=== PATIENT | female | born 1960 | race Caucasian/White ===

== ENCOUNTER 2019-05-29 10:39 | Inpatient (IN) | payer BC, OTHER ==
[~2019-05-29] VITALS: Ht 177.8 cm; Wt 88.3 kg
[2019-05-29] VITALS (15 sets, daily range): BP systolic 108–138; BP diastolic 70–91
[2019-05-29] MEDS ORDERED: LIDOCAINE 2%HCL (LOCAL ANESTH.) INJ 20ML MDV ONE (10:49)
[2019-05-29] MEDS ORDERED: IOHEXOL 350 MG/ML 100ML IJ ONE ×2 (10:49→10:59)
[2019-05-29] MEDS ORDERED: MIDAZOLAM HCL 1MG/1ML-2 ML VIAL ONE (10:58)
[2019-05-29] MEDS ORDERED: fentaNYL CITRATE 100 MCG/2 ML VL ONE (10:58)
[2019-05-29] MEDS ORDERED: ANGIOMAX 250 MG VIAL IV ONE (10:58)
[2019-05-29] MEDS ORDERED: NOREPINEPHRINE 8 MG/250ML KIT 0 ML IV ONE (10:59)
[2019-05-29] MEDS ORDERED: SODIUM CHL 0.9% 50 ML ONE (10:59)
[2019-05-29] MEDS ORDERED: HEPARIN SODIUM (PORCINE) 5000 UNITS/ML 1ML VIAL IV ONE (11:00)
[2019-05-29] MEDS ORDERED: MORPHINE SULF INJ 2 MG/ML SYRINGE 1ML IV PRN ×2 (11:00→13:00)
[2019-05-29 11:05] LABS: Basophils # (auto) 0 uL; Basophils % (auto) 0.1 % (0.0-2.0); Eosinophils # (auto) 0.2 uL; Eosinophils % (auto) 0.9 % (0.0-7.0); Hematocrit 43.4 % (36.0-46.0); Hemoglobin 14.4 g/dL (12.2-16.2); Lymphocytes # (auto) 2.8 uL; Lymphocytes % (auto) 16.7 % (10.0-50.0); Mean Corpuscular Hemoglobin 32.1 pg (28.0-32.0); Mean Corpuscular Hgb Conc. 33.3 g/dL (32.0-36.0); Mean Corpuscular Volume 96.4 fL (80.0-100.0); Monocytes # (auto) 0.7 uL; Monocytes % (auto) 3.9 % (0.0-12.0); Neutrophils # (auto) 13.2 uL; Neutrophils % (auto) 78.4 % (37.0-80.0); Nucleated Red Blood Cells % 0.2 %; Platelet Count (auto) 266 10^3/uL (140-450); Red Blood Cells 4.51 10^6/uL (4.0-5.20); Red Cell Distribution Width 13.8 % (11.8-14.3); White Blood Cell 16.9 10^3/uL (4.4-10.8)
[2019-05-29] MEDS ORDERED: ONDANSETRON HCL 4 MG/2 ML VIAL ONE (11:19)
[2019-05-29 11:20] LABS: Alanine Aminotransferase 23 U/L (13-56); Albumin 3.8 g/dL (3.4-5.0); Anion Gap 8 (5-15); Blood Urea Nitrogen 13 mg/dL (7-18); Calcium 8.6 mg/dL (8.5-10.1); Carbon Dioxide 27 mmol/L (21-32); Chloride 108 mmol/L (98-107); Glucose 164 mg/dL (74-106); Magnesium 2.1 mg/dL (1.6-2.6); Potassium 3.8 mmol/L (3.5-5.1); Sodium 143 mmol/L (136-145)
[2019-05-29] MEDS ORDERED: ATROPINE SULFATE 1 MG/1 ML VIAL ONE ×2 (11:21→11:50)
[2019-05-29] MEDS ORDERED: EPTIFIBATIDE INJ (2MG/ML) 10ML VIAL IV ONE (11:24)
[2019-05-29 11:26] LABS: Alkaline Phosphatase 92 U/L (45-117); Aspartate Aminotransferase 20 U/L (15-37); BUN/Creatinine Ratio 14.9; Bilirubin, Total 0.3 mg/dL (0.2-1.0); GFR African American 86 mL/min; GFR Non-African American 71 mL/min; Total Protein 6.7 g/dL (6.4-8.2)
[2019-05-29 11:34] LABS: INR 0.98 (0.9-1.15); Partial Thromboplastin Time 25.1 sec (23.64-32.05)
[2019-05-29] MEDS ORDERED: NICARDIPINE 25 MG/10 ML VIAL IV ONE (11:38)
[2019-05-29] MEDS ORDERED: CLOPIDOGREL 300 MG TAB ONE (12:04)
[2019-05-29] MEDS ORDERED: ASPirin 325 MG TAB ONE (12:04)
[2019-05-29] MEDS ORDERED: NITROGLYCERIN 0.4 MG SL TAB SL PRN ×2 (13:00)
[2019-05-29] MEDS ORDERED: HYDROcodone-ACET 5/325MG TAB PO PRN (13:00)
[2019-05-29] MEDS ORDERED: NOREPINEPHRINE 8 MG/250ML KIT 250 ML IV SCH (13:00)
--- NOTE | 2019-05-29 14:14 | NUR ---
[facility] SCREEN SENT VIA [employer]
[2019-05-29] MEDS: MEROPENEM 1GM IVPB 100 ML IV SCH (17:37)
--- NOTE | 2019-05-29 19:17 | NUR ---
open assumed care of female pt, pt is laying in bed connected to icu monitors vs wnl. pt is a/o x4, no ss of distress noted at this time, pt denies pain. pt has a r18g iv and l 18g iv. both ivs are patent, the dressings are clean and dry, no ss of redness or swelling noted. pt has r groin angioseal, dressing is clean and dry. pt is educated tennis professional light usage, pt verbalized understanding, call light within reach. bed in lowest position, wheels locked , side rails up x3, will continue to care for and monitor. Addendum: 05/30/19 at 0757 by JAYLIN LIMA RN RN all of the patients questions and concerns are addressed at this time.
--- NOTE | 2019-05-29 20:00 | NUR ---
family at bedside
[2019-05-29] MEDS ORDERED: ATORVASTATIN 20 MG TAB PO SCH (22:00)
[2019-05-29] MEDS: METOPROLOL TARTRATE 25 MG TAB PO SCH (22:19)
--- NOTE | 2019-05-29 23:00 | NUR ---
ambulated to toilet with assistance
[2019-05-30] VITALS (14 sets, daily range): BP systolic 96–148; BP diastolic 58–86
--- NOTE | 2019-05-30 01:10 | NUR ---
pt appears to be sleeping pt appears to be sleeping no ss of distress noted at this time.
[2019-05-30] MEDS: MEROPENEM 1GM IVPB 100 ML IV SCH ×3 (01:13→17:29)
--- NOTE | 2019-05-30 03:23 | NUR ---
helped assist pt to toilet and back to bed pt tolerated ambulation. vs wnl
[2019-05-30 04:51] LABS: Basophils # (auto) 0 uL; Eosinophils # (auto) 0.1 uL; Eosinophils % (auto) 0.9 % (0.0-7.0); Hematocrit 37.5 % (36.0-46.0); Hemoglobin 12.8 g/dL (12.2-16.2); Lymphocytes # (auto) 2.9 uL; Lymphocytes % (auto) 27.3 % (10.0-50.0); Mean Corpuscular Hemoglobin 32.8 pg (28.0-32.0); Mean Corpuscular Volume 96.3 fL (80.0-100.0); Monocytes # (auto) 0.6 uL; Monocytes % (auto) 5.9 % (0.0-12.0); Neutrophils % (auto) 65.9 % (37.0-80.0); Nucleated Red Blood Cells % 0.1 %; Platelet Count (auto) 181 10^3/uL (140-450); Red Cell Distribution Width 13.8 % (11.8-14.3); White Blood Cell 10.6 10^3/uL (4.4-10.8)
[2019-05-30 05:09] LABS: Potassium 3.8 mmol/L (3.5-5.1)
--- NOTE | 2019-05-30 05:20 | NUR ---
pt appears to be sleeping pt appears to be sleeping no ss of distress noted at this time.
[2019-05-30 05:23] LABS: Albumin 3.2 g/dL (3.4-5.0); BUN/Creatinine Ratio 13.1; Calcium 8.7 mg/dL (8.5-10.1)
[2019-05-30 05:37] LABS: Bilirubin, Total 0.4 mg/dL (0.2-1.0); Total Protein 5.8 g/dL (6.4-8.2)
--- NOTE | 2019-05-30 07:15 | NUR ---
Opening Shift Note: Report received from ASPEN Clarke. Patient is A/O x4. Patient is possible downgrade.
[2019-05-30] MEDS: CLOPIDOGREL BISULFATE 75 MG TAB PO SCH (10:02)
[2019-05-30] MEDS: ASPirin 81 mg TAB PO SCH (10:02)
[2019-05-30] MEDS: METOPROLOL TARTRATE 25 MG TAB PO SCH ×2 (10:03→21:48)
--- NOTE | 2019-05-30 10:45 | NUR ---
Family at bedside all morning.
--- NOTE | 2019-05-30 10:46 | NUR ---
Paged Dr. Tapia for orders.
--- NOTE | 2019-05-30 11:12 | NUR ---
Dr. Tapia at bedside: Went over medication regimen with daughter and patient, and plan of care. New Orders: -Downgrade to Tele -Home tomorrow -Follow-up Appointment Tomorrow
--- NOTE | 2019-05-30 11:18 | NUR ---
SBAR report given to ASPEN Alvarez in tele.
[2019-05-30] MEDS ORDERED: diphenhdrAMINE HCL 25 MG CAP PO PRN (11:30)
[2019-05-30] MEDS ORDERED: CLOPIDOGREL 300 MG TAB PO ONE ×2 (11:30→11:45)
[2019-05-30] MEDS ORDERED: CLOPIDOGREL BISULFATE 75 MG TAB ONE (11:52)
--- NOTE | 2019-05-30 12:20 | NUR ---
Transferred patient to floor, room 288A. Family aware- and daughter at bedside. Gave patient prescriptions for tomorrow and made copies -had patient sign.
--- NOTE | 2019-05-30 15:30 | NUR ---
Received pt as transfer from ICU, following verbal report from ASPEN Khoury. Pt alert and oriented. V.S.S., resp even, unlabored. Drsg to right groin clean, dry and intact. IV's to right and left AC's patent, site clear. Pt denies chest pain. No other c/o pain or discomfort. Family at bedside.
--- NOTE | 2019-05-30 19:35 | NUR ---
Opening Shift Note Assumed care of patient, awake and alert. No S/S of distress/SOB or pain. Dressing to right groin dry and intact, surrounding tissue soft, bilateral pedal pulses weak. Instructed on POC and to evie for assist PRN, patient verbalized understanding, call light within reach, will continue to monitor for changes Q1hr and PRN.
[2019-05-30] MEDS ORDERED: ATORVASTATIN 20 MG TAB PO SCH (22:00)
[2019-05-31] MEDS: MEROPENEM 1GM IVPB 100 ML IV SCH ×2 (01:04→09:12)
[2019-05-31 04:30] VITALS: BP 132/79
[2019-05-31 09:00] VITALS: BP 141/76
--- NOTE | 2019-05-31 09:05 | NUR ---
PT STATED SHE WILL MAKE HER OWN APPOINTMENT WITH DR. RAMOS.
[2019-05-31] MEDS: CLOPIDOGREL BISULFATE 75 MG TAB PO SCH (09:12)
[2019-05-31] MEDS: ASPirin 81 mg TAB PO SCH (09:13)
[2019-05-31] MEDS: METOPROLOL TARTRATE 25 MG TAB PO SCH (09:14)
--- NOTE | 2019-05-31 09:15 | NUR ---
PT SEEN BY DR. RIVERO, HE ORDERED TO CHECK O2 SATURATION ROOM AIR, O2 SAT 96-97% ROOM AIR, PER DR. RIVERO PT CAN GO HOME.
--- NOTE | 2019-05-31 10:16 | NUR ---
SPOKE TO ARTURO DRAWING OPERATOR, PER ARTURO PT WILL APPLY FOR DISABILITY ONLINE. Addendum: 05/31/19 at 1127 by Elzbieta Forte RN DRAWING OPERATOR CANCELLED.
--- NOTE | 2019-05-31 10:30 | NUR ---
CALLED DR. RIVERO MADE AWARE I SPOKE WITH PT'S BROTHER VIKAS, HE WAS ASKING IF PT IS GOING HOME WITH HOME HEALTH SINCE SHE LIVES ALONE, AND REGARDING ANTIBIOTIC. PER DR. RIVERO PT CAN GO HOME WITHOUT HOME HEALTH AND WILL FOLLOW UP IN HIS OFFICE ON FRIDAY IF PT NEEDS HOME HEALTH HE WILL TAKE CARE OF IT WHEN PT FOLLOW UP IN HIS OFFICE, AND NO ANTIBIOTIC SINCE WBC COUNT IS NORMAL. PT AND BROTHER MADE AWARE AND VERBALIZED UNDERSTANDING.
[2019-05-31 10:34] VITALS: BP 141/76
--- NOTE | 2019-05-31 11:50 | NUR ---
Discharge instructions given as ordered. Encourage to follow up with DR. Josephine RIVERO ON 06/02/19 AT 6:00PM, PT WILL MAKE HER OWN APPOINTMENT WITH DR. RAMOS HER PRIMARY DOCTOR as instructed. All questions and concerns addressed. Patient verbalized understanding. Medication reconciliation form completed and copy given to patient. IV removed with catheter intact, pressure dressing applied. Telemetry unit returned to ICU. Patient taken to vehicle via wheelchair with all personal belongings, accompanied by staff and family member. No distress noted at time of departure.
[2019-05-31 13:00] VITALS: BP_SYST 135; BP_SYST 138; BP_DIAS 72; BP_DIAS 77
--- NOTE | 2019-06-01 10:01 | NUR ---
consult Elzbieta LOUISE informed me that she was cancelling consult for disability. I did inform patient how to get form from online and to contact her employer. Patient verbalized understanding. Addendum: 06/01/19 at 1008 by Dinora SHELBY Amended: Links added.
== END 2019-05-31 11:50 | disposition home or self-care (01) | DRG 247 ==
LOC: EDBD 10:39 → ER 10:42 → CATH 11:03 → ICU WEST 11:04 → TELE-WESTW 05-30 12:24
PROVIDERS: ADMIT Specialist; ATTEND Specialist
PROC: 027034Z Dilation of Coronary Artery, One Artery with Drug-eluting Intraluminal Device, Percutaneous Approach (ICD-10-PCS; principal; 2019-05-29)
PROC: 02C03ZZ Extirpation of Matter from Coronary Artery, One Artery, Percutaneous Approach (ICD-10-PCS; 2019-05-29)
PROC: B41F1ZZ Fluoroscopy of Right Lower Extremity Arteries using Low Osmolar Contrast (ICD-10-PCS; 2019-05-29)
PROC: 4A023N7 Measurement of Cardiac Sampling and Pressure, Left Heart, Percutaneous Approach (ICD-10-PCS; 2019-05-29)
PROC: B2111ZZ Fluoroscopy of Multiple Coronary Arteries using Low Osmolar Contrast (ICD-10-PCS; 2019-05-29)
PROC: B2151ZZ Fluoroscopy of Left Heart using Low Osmolar Contrast (ICD-10-PCS; 2019-05-29)
PROC: 3E073PZ Introduction of Platelet Inhibitor into Coronary Artery, Percutaneous Approach (ICD-10-PCS; 2019-05-29)
PROC: 4A133BC Monitoring of Arterial Pressure, Coronary, Percutaneous Approach (ICD-10-PCS; 2019-05-29)
DX: I21.19 ST elevation (STEMI) myocardial infarction involving other coronary artery of inferior wall (principal); N39.0 Urinary tract infection, site not specified; E66.9 Obesity, unspecified; F17.210 Nicotine dependence, cigarettes, uncomplicated; I25.10 Atherosclerotic heart disease of native coronary artery without angina pectoris; Z68.27 Body mass index [BMI] 27.0-27.9, adult; Z79.899 Other long term (current) drug therapy; Z71.6 Tobacco abuse counseling
CPT/HCPCS: 36415; 71045; 80053; 83735; 84484; 85025; 85610; 85730; 86850; 86900; 86901; 87081; 87086; 93005; G0378; J0461; J2185; J2250; J2405